=== PATIENT | male | born 1965 | race Caucasian/White ===

== ENCOUNTER 2022-05-19 15:41 | Emergency (ER) | payer OTHER, SELFPAY ==
[2022-05-19 15:48] VITALS: BP 109/77; PULSE 90; RESP 14; TEMP 37.2; O2SAT 99
[2022-05-19 15:58] VITALS: BP 109/77; PULSE 90; RESP 14; TEMP 37.2; O2SAT 99
--- NOTE | 2022-05-19 16:39 | ED.SKABFB ---
HPI - Skin/Abscess/Foreign Bdy General Chief complaint: Skin/Abscess/Foreign Body Stated complaint: Skin Sore Time Seen by Provider: 05/19/22 16:05 Source: patient Mode of arrival: ambulatory Limitations: no limitations History of Present Illness HPI narrative: Mr. Malik is a 57-year-old male patient presenting to the clinic today with complaints of a skin sore to his low mid back. He reports that this is been going on for approximately 10 days and is gradually getting worse. States that it is mildly painful and sharp. He denies any fever or chills. He denies any problems walking or loss of bowel or bladder or numbness in his groin. Related Data Home Medications Medication Instructions Recorded Confirmed aspirin 81 mg chewable tablet 81 mg PO DAILY 10/24/19 05/19/22 insulin aspart (niacinamide) 12 unit subcut TID 05/19/22 05/19/22 (U-100) 100 unit/mL subcutaneous solution (Fiasp U-100 Insulin) insulin degludec 100 unit/mL (3 30 unit subcut BID 05/19/22 05/19/22 mL) subcutaneous pen (Tresiba FlexTouch U-100 insulin) metformin 500 mg tablet 500 mg PO BID 05/19/22 05/19/22 quinapril 20 mg tablet 20 mg PO DAILY 05/19/22 05/19/22 Allergies Allergy/AdvReac Type Severity Reaction Status Date / Time No Known Allergies Allergy Verified 05/19/22 15:55 Review of Systems Review of Systems: Pertinent positives per HPI. Patient denies any fever, chills, rash, headache, visual changes, dizziness, cough, runny nose, sore throat, shortness of breath, chest pain, palpitations, nausea, vomiting, diarrhea, constipation, abdominal pain, or any urinary issues. [facility] Past Medical History Medical History Elevated cholesterol Family History Family History Mother Family history of multiple sclerosis Social History Social History Smoking status: Current every day smoker Alcohol intake: never Comments At the time of my signature, I reviewed and agree with the nursing past medical, surgical, social, and family history. There is no relevant family history pertinent to the patient complaint. Exam Narrative: General: Well-developed, well nourished, in no apparent distress Head: Normocephalic, atraumatic. Cardio: Regular rate and rhythm, s1 and s2 normal, no murmur appreciated. Resp: Clear to auscultation bilaterally, no rhonchi, rales, wheezing or rubs. Integumentary: [place], warm, and dry, abscess with induration measuring 3 x 3 cm with pustular/fluctuant center. Incision and drainage performed and greenish-yellow discharge was evacuated from the wound. Area was mildly tender to palpation Course Course Emergency Course: Portions of this record may have been created with voice recognition software. Level of Care: Express Care Visit Vital Signs Vital signs: Vital Signs Temperature 37.2 C 05/19/22 15:48 Pulse Rate 90 05/19/22 15:48 Respiratory Rate 14 05/19/22 15:48 Blood Pressure 109/77 05/19/22 15:48 Pulse Oximetry 99 05/19/22 15:48 Oxygen Delivery Room Air 05/19/22 15:48 Temperature 37.2 C 05/19/22 15:58 Pulse Rate 90 05/19/22 15:58 Respiratory Rate 14 05/19/22 15:58 Blood Pressure 109/77 05/19/22 15:58 Pulse Oximetry 99 05/19/22 15:58 Oxygen Delivery Room Air 05/19/22 15:58 Vital signs reviewed Procedures Abscess I/D back: Date of Incision: 05/19/22 Local Anesthetic: lidocaine 1% Amount of anesthesia used (mL): 4 Technique: incised with #11 blade Amount of fluid expressed (mL): 15 Irrigation: No Packing used?: iodoform (Quarter inch) I&D Results: Pus Abcess I&D Additional Comments: Verbal consent obtained for incision and drainage. Risk and benefits explained and patient voiced understanding. Area was cleansed with te
== END 2022-05-19 16:46 | disposition home or self-care (01) ==
PROVIDERS: Emergency Provider Nurse Practitioner Family; PCP Emergency Medicine
DX: L02.212 Cutaneous abscess of back [any part, except buttock and flank] (principal); F17.200 Nicotine dependence, unspecified, uncomplicated; E78.00 Pure hypercholesterolemia, unspecified; Z79.82 Long term (current) use of aspirin
CPT/HCPCS: 10061; 87070; 87205; 99213; G0463

== ENCOUNTER 2023-03-12 14:04 | Emergency (ER) | payer OTHER, SELFPAY ==
--- NOTE | 2023-03-12 14:17 | ED.SKABFB ---
HPI - Skin/Abscess/Foreign Bdy General Chief complaint: Skin/Abscess/Foreign Body Stated complaint: tick bite Time Seen by Provider: 03/12/23 14:21 Source: patient Mode of arrival: ambulatory Limitations: no limitations History of Present Illness HPI narrative: Mr. Malik is a 58-year-old male patient presenting to clinic today with complaints of a tick bite to his right posterior thigh. He reports that he noticed this last week and thought he remove the tick however his rash is getting worse. He denies any fever, chills, body aches, joint pain, or abdominal discomfort. Related Data Home Medications Medication Instructions Recorded Confirmed aspirin 81 mg chewable tablet 81 mg PO DAILY 10/24/19 05/19/22 insulin aspart (niacinamide) 12 unit subcut TID 05/19/22 05/19/22 (U-100) 100 unit/mL subcutaneous solution (Fiasp U-100 Insulin) insulin degludec 100 unit/mL (3 30 unit subcut BID 05/19/22 05/19/22 mL) subcutaneous pen (Tresiba FlexTouch U-100 insulin) metformin 500 mg tablet 500 mg PO BID 05/19/22 05/19/22 quinapril 20 mg tablet 20 mg PO DAILY 05/19/22 05/19/22 losartan 50 mg tablet 50 mg PO DAILY 03/12/23 03/12/23 Allergies Allergy/AdvReac Type Severity Reaction Status Date / Time No Known Allergies Allergy Verified 03/12/23 14:26 Review of Systems Review of Systems: Pertinent positives per HPI. Patient denies any fever, chills, rash, headache, visual changes, dizziness, cough, runny nose, sore throat, shortness of breath, chest pain, palpitations, nausea, vomiting, diarrhea, constipation, abdominal pain, or any urinary issues. [facility] Past Medical History Medical History (Updated 03/12/23 @ 14:34 by Brent Montalvo APRN) Elevated cholesterol Family History Family History Mother Family history of multiple sclerosis Social History Social History Smoking status: Current every day smoker Alcohol intake: never Comments At the time of my signature, I reviewed and agree with the nursing past medical, surgical, social, and family history. There is no relevant family history pertinent to the patient complaint. Exam Narrative: General: Well-developed, well nourished, in no apparent distress Head: Normocephalic, atraumatic. Cardio: Regular rate and rhythm, s1 and s2 normal, no murmur appreciated. Resp: Clear to auscultation bilaterally, no rhonchi, rales, wheezing or rubs. Integumentary: [place], warm, and dry, red raised bullseye like rash to the right posterior thigh with retained tick remnants Course Course Emergency Course: Portions of this record may have been created with voice recognition software. Level of Care: Express Care Visit Vital Signs Vital signs: Vital signs reviewed Procedures Other Procedure Procedure 1: Other Procedure: Consent obtained for foreign body soft tissue removal of the left posterior thigh. Risk and benefits explained patient voiced understanding. Area was cleansed with alcohol 1% lidocaine without epi 1 mL was injected under the skin of the superficial tick remnants. An 18 gauge needle was then used to remove the tick remnants. Patient tolerated procedure well. MDM - Skin/Abscess/Foreign Bdy MDM Narrative Medical decision making narrative: At the time of visit patient is resting comfortably on the exam table. Patient has remnants of the tick in his posterior thigh. Area was numbed using 1% lidocaine without epi and an 18 gauge needle was used to remove tick remnants. Patient tolerated procedure well. Supportive measures were discussed with the patient he voiced understanding. Will do 200 mg doxycycline for prophylaxis Differential Diagnosis Differential diagnosis: Likely abscess of skin or subcutaneous tissue, cellulitis, eczema, insect bites and contact dermatitis Discharge Plan Discharge Clinical Imp
[2023-03-12 14:19] VITALS: BP 99/68; PULSE 91; RESP 16; TEMP 36.7; O2SAT 100
== END 2023-03-12 14:47 | disposition home or self-care (01) ==
PROVIDERS: Emergency Provider Nurse Practitioner Family; PCP Emergency Medicine
DX: S70.361A Insect bite (nonvenomous), right thigh, initial encounter (principal); W57.XXXA Bitten or stung by nonvenomous insect and other nonvenomous arthropods, initial encounter; E78.00 Pure hypercholesterolemia, unspecified; F17.200 Nicotine dependence, unspecified, uncomplicated
CPT/HCPCS: 99213; G0463